=== PATIENT | male | born 1960 | race Caucasian/White ===

== ENCOUNTER 2021-09-13 14:54 | Outpatient (CLI) | payer OTHER, SELFPAY ==
[2021-09-13 15:58] LABS: Basophils Absolute Auto 0.1 K/mm3 (0.0-0.1); Basophils Percent Auto 0.9 % (0.2-1.2); Eosinophils Absolute Auto 0.2 K/mm3 (0-0.3); Eosinophils Percent Auto 1.5 % (0-4.4); Hematocrit 45.8 % (42.0-52.0); Hemoglobin 15.3 g/dL (14.0-18.0); Immature Granulocyte Absolute 0.03 K/mm3 (0.00-0.031); Immature Granulocyte Percent A 0.3 % (0-0.5); Lymphocytes Absolute Auto 5.09 K/mm3 (0.9-3.2); Lymphocytes Percent Auto 46.2 % (18.3-44.2); Mean Corpuscular HGB Conc 33.4 g/dl (32-36); Mean Corpuscular Volume 92.7 fl (80-100); Monocytes Absolute Auto 0.6 K/mm3 (0.1-0.6); Monocytes Percent Auto 5.8 % (2.6-8.5); Neutrophils Percent Auto 45.3 % (45.5-73.1); Platelet Count Result 299 k/mm3 (150-375); Red Blood Count 4.94 M/mm3 (4.6-6.20); Red Cell Distribution Width 13.2 % (11.5-14.5)
[2021-09-13 16:07] LABS: Alanine Aminotransferase 19 U/L (4-50); Albumin Level 4.3 g/dL (3.5-5.1); Alkaline Phosphatase 88 U/L (38-126); Anion Gap 5 mmol/L (8-16); Aspartate Amino Transferase 19 U/L (17-59); Bilirubin,Total 0.8 mg/dL (0.2-1.3); Blood Urea Nitrogen 14 mg/dL (9-20); Calcium 9.4 mg/dL (8.4-10.2); Carbon Dioxide 29 mmol/L (22-30); Chloride 106 mmol/L (98-107); Cholesterol 131 mg/dL (0-200); Estimated Glomerular Filt Rate > 60; Glucose 143 mg/dL (65-110); HDL Direct 36 mg/dL; Potassium 3.5 mmol/L (3.4-5.0); Sodium 140 mmol/L (137-145); Triglycerides 119 mg/dL (<150)
[2021-09-13 16:19] LABS: LDL Cholesterol Direct 72 mg/dL
[2021-09-13 16:38] LABS: Prostate Specific Antigen 2.9 ng/mL (< OR = 4.0)
== END 2021-09-13 14:55 | disposition home or self-care (01) ==
DX: I10 Essential (primary) hypertension (principal); I25.10 Atherosclerotic heart disease of native coronary artery without angina pectoris; E66.8 Other obesity; E78.2 Mixed hyperlipidemia; E11.65 Type 2 diabetes mellitus with hyperglycemia; Z13.89 Encounter for screening for other disorder; Z12.5 Encounter for screening for malignant neoplasm of prostate
CPT/HCPCS: 36415; 80053; 80061; 84153; 84439; 84443; 85025; G0103

== ENCOUNTER 2023-06-15 19:37 | Emergency (ER) | payer OTHER, SELFPAY ==
[2023-06-15 19:40] VITALS: BP 165/104; PULSE 73; RESP 20; TEMP 36.6; O2SAT 97
[2023-06-15] MEDS: ORPHENADRINE CITRATE 30 MG/ML 2 ML VIAL 60 MG IM (20:03)
[2023-06-15] MEDS: KETOROLAC (*BKC) 60 MG/2 ML VIAL IM (20:03)
--- NOTE | 2023-06-15 20:04 | ED.BACK ---
HPI - Back Pain/Injury General Chief Complaint: Back Pain/Injury Stated Complaint: bilateral lower back pain Time Seen by Provider: 06/15/23 19:39 Source: patient Mode of arrival: ambulatory Limitations: no limitations History of Present Illness HPI Narrative: This is a 62-year-old male with a history of diabetes and hypertension presents with back pain radiating into his right upper leg no known injury does improve with rest and exacerbated with movement there is no saddle paresthesias no fever chills. Currently there is no dysuria no hematuria no history of kidney stones no flank pain. MD elicited complaint: back pain Pertinent past history: prior back pain Onset (ago): day(s) Timing: constant Severity: moderate Pain scale (0-10): 6 Quality: dull and aching Location: lumbar spine Radiation: right upper leg Exacerbating factors: movement Relieving factors: immobilization Context: while lifting, turning/twisting and bending Associated symptoms: denies other symptoms Related Data Allergies Allergy/AdvReac Type Severity Reaction Status Date / Time No Known Allergies Allergy Verified 06/15/23 19:45 Review of Systems Review of Systems: All systems reviewed & are unremarkable except as noted in HPI and below PMFSH Past Medical History Medical History Diabetes mellitus Course Course Emergency Course: reassessment of patient after received IM muscle relaxant and Toradol has pain level has improved, UA performed and within normal limits. Vital Signs Vital signs: Vital Signs Temperature 36.6 C 06/15/23 19:40 Pulse Rate 73 06/15/23 19:40 Respiratory Rate 20 06/15/23 19:40 Blood Pressure 165/104 H 06/15/23 19:40 Pulse Oximetry 97 06/15/23 19:40 Oxygen Delivery Room Air 06/15/23 19:40 Temperature 36.6 C 06/15/23 19:40 Pulse Rate 73 06/15/23 19:40 Respiratory Rate 20 06/15/23 19:40 Blood Pressure 165/104 H 06/15/23 19:40 Pulse Oximetry 97 06/15/23 19:40 Oxygen Delivery Room Air 06/15/23 19:40 Critical Care Time Critical Care Time Critical Care Time: No Discharge Plan Discharge Clinical Impression: Lumbar radiculopathy, Acute UTI Sciatica Qualifiers: Laterality: right Qualified Code(s): M54.31 - Sciatica, right side Patient Disposition: Home, Self-Care Condition: Stable Instructions: Antibiotic Form, Urinary Tract Infection in Men (ED), Sciatica (ED), Acute Low Back Pain (ED) Additional Instructions: Advised take medication as prescribed and follow-up with primary care physician if symptoms persist or worsen. Prescriptions: New tramadol 50 mg tablet 50 mg PO Q6H PRN (Reason: pain) Qty: 14 0RF sulfamethoxazole-trimethoprim [Bactrim DS] 800-160 mg tablet 1 tablet PO Q12H 7 Days Qty: 14 0RF Follow-up/Referrals: Jeff Small MD [Primary Care Provider] - Time of Disposition: 20:43
[2023-06-15 20:31] LABS: Appearance Urine Clear (Clear); Bilirubin Urine 1+ (Negative); Blood Urine Negative (Negative); Glucose Urine UA Trace (Negative); Ketones Urine Trace (Negative); Leukocyte Esterase Ur Trace LEU/UL (Negative); Nitrate Urine Positive (Negative); Protein Urine 3+ (Negative); Specific Grav Ur 1.025 (1.010-1.020); pH Urine 6.5 (5.0-8.0)
[2023-06-15 20:37] LABS: Add Urine Microscopic? YES
[2023-06-15 20:38] LABS: Bacteria Urine 1+ /hpf; Color Urine Dark Orange (Yellow); Mucus Urine Moderate /lpf; RBC Urine 0-2 /hpf (0-2); Squamous Epithelial Cell Urine Few /hpf (Few)
[2023-06-15] MEDS: SULFAMETHOXAZOLE/TRIMETHOPRIM 800/160 MG DS TABLET 1 TAB PO (20:46)
[2023-06-15 20:59] VITALS: BP 140/82; PULSE 78; RESP 18; O2SAT 98
--- NOTE | 2023-06-18 13:31 | PC.NURSE ---
reviewed urine culture, no growth noted
== END 2023-06-15 21:01 | disposition home or self-care (01) ==
LOC: CHSED 20:21
PROVIDERS: Emergency Provider Emergency Medicine; PCP Family Medicine
DX: M54.16 Radiculopathy, lumbar region (principal); N39.0 Urinary tract infection, site not specified; M54.31 Sciatica, right side; I10 Essential (primary) hypertension; E11.9 Type 2 diabetes mellitus without complications
CPT/HCPCS: 81001; 87086; 96372; 99284; A9270; J1885; J2360

== ENCOUNTER 2023-08-02 12:01 | Outpatient (CLI) | payer OTHER, SELFPAY ==
--- NOTE | ~2023-08-02 | XR_ITS ---
Clinical Indication: Cough PA and lateral views of the chest: Comparison: None Findings: The lungs are clear, without evidence of focal consolidation or pleural effusion. Cardiome diastinal silhouette is within normal limits, with pacemaker device. Bones and soft tissues are unrem arkable. Impression: Clear lungs. Reviewed, dictated and finalized at location . E READER Impression: Clear lungs.
== END 2023-08-02 12:02 | disposition home or self-care (01) ==
LOC: CHSIMG 12:05
PROVIDERS: PCP Family Medicine; Visit Provider Family Medicine
DX: R05.9 Cough, unspecified (principal)
CPT/HCPCS: 71046

== ENCOUNTER 2024-04-26 13:34 | Outpatient (CLI) | payer OTHER, SELFPAY ==
--- NOTE | ~2024-04-26 | XR_ITS ---
EXAMINATION: XR lumbar spine 2-3V DATE: 04/26/2024 14:03 INDICATION: Lumbago. Left-sided sciatica. TECHNIQUE: 3 views of lumbar spine were obtained. COMPARISON: None. FINDINGS: There is 6 degrees levocurvature of thoracic lumbar spine. There is 2 mm anterolisthesis of L4 on L5. There is mild chronic anterior wedging of T10-L1 vertebral bodies. There is mildly decreas ed disc height at L4-L5 and L5-S1. There is multilevel [id number]-[id number] facet joint osteoarthritis. IMPRESSION: 1. Mild lumbar spondylosis. Reviewed, dictated and finalized at location A. IMPRESSION: 1. Mild lumbar spondylosis.
== END 2024-04-26 13:35 | disposition home or self-care (01) ==
LOC: CHSIMG 13:37
PROVIDERS: PCP Family Medicine; Visit Provider Family Medicine
DX: M54.42 Lumbago with sciatica, left side (principal); M43.06 Spondylolysis, lumbar region
CPT/HCPCS: 72100

== ENCOUNTER 2024-05-06 13:28 | Outpatient (RCR) | payer OTHER, SELFPAY ==
--- NOTE | 2024-05-06 14:23 | PTOPEVAL1 ---
Assessment and note entered by Alvarado Pereira Evaluation Information Assessment Status Evaluation Diagnosis lumbar spondylosis ICD-10 Condition Codes (PT) Pain in low back M54.50 Onset 03/05/24 Subjective Information Pt. reports that he has been experiencing low back pain for the past couple months. He states that he was cutting some trees the day before, which may have started his pain. He reports that his pain has slightly improved over the past couple months. He reports that he has little pain if he is not active. He mainly notices pain with lifting and twisting. He reports that he has been more sedentary since the onset of pain. He reports that he has changed the way he walks, and has been shuffling more due to fear of re-injury. He reports pain begins in the low back and will radiate down into the left buttock. He has undergone x-ray. He reports that he was active with yard work prior to his injury, but has been avoiding any heavy yard work. He states that he will take Advil to reduce his pain. He states that he still can stand for long periods, but has to avoid any sudden movement. He reports that his goal is to reduce his pain. Reported Pain Level Pain Score 2: Self Report Assessment PT Clinical Summary Pt. is a 63 year old male who enters the clinic with low back pain. Upon reviewing x-ray no arthritic change with spondylolisthesis of the lumbar region. He presents with abdominal and proximal l.e. weakness, impaired trunk mobility, impaired flexibility, impaired gait, impaired postural awareness and pain. Continued skilled PT is indicated in order to improve these areas to allow the pt. to be able to safely complete home activities without pain increase. Plan of Care Interventions Gait Training,Hot Pack/Cold Pack,Manual Therapy, Mechanical Traction,Neuro Re-education,Patient/ Caregiver Educati,Therapeutic Activities, Therapeutic Exercise PT Services Indicated Yes Treatment Frequency and 1x/week x 8 visits Duration These treatments will address the objective and functional deficits as defined above. The patient will be advanced safely and appropriately in order for the patient to progress towards his/her prior level of function. Additional exercises will be introduced and as well as a comprehensive home exercise program upon discharge, if needed, ?to ensure carryover of functional gains achieved in the clinic. This treatment plan has been reviewed and agreement upon by the patient.
--- NOTE | 2024-05-06 14:24 | OPREHPOC ---
Outpatient Therapy Plan of Care This is a Multidisciplinary Plan of Care that may contain components documented by all disciplines (PT, OT, and ST.) PT Problem 1 PT Problem #1 Knowledge Deficit PT Goal 1 Goal / Goal Update Pt. will be independent with a HEP focused on core strength and trunk mobility Target Visit 2 PT Problem 2 PT Problem #2 Pain PT Goal 1 Goal / Goal Update Pt. will report reduction in pain levels to 4/10 at worst with prolonged standing activities. Target Visit 8 PT Problem 3 PT Problem #3 Impaired Strength PT Goal 1 Goal / Goal Update Pt. will present with 5/5 proximal l.e. strength and good lower, upper and oblique abdominal strength Pt. will demonstrate increase in mm. strength to normal at all groups to improve lumbar stability and postural awareness with prolonged standing activities. Target Visit 8 PT Problem 4 PT Problem #4 Impaired Flexibility PT Goal 1 Goal / Goal Update Pt. will present at 20 degrees from full knee extension in order to improve ability to safely reach to the floor. Target Visit 5 PT Problem 5 PT Problem #5 Impaired Functional Mobil PT Goal 1 Goal / Goal Update Pt. will present with less than 20% limitation with the Oswestry indicating improve functional mobility Pt. will demonstrate safe mechanics with lifting 20# object from floor to waist x 10 reps Target Visit 8
--- NOTE | 2024-05-20 13:59 | PCPTNOTE ---
Patient called & cancelled scheduled appointment this date due to [illness ]
--- NOTE | 2024-07-24 07:17 | PCPTNOTE ---
Mr. Rodriguez attended a total of 4 treatment sessions. During his last session on 06/03/24 the pt. participated in high level core stabilization activities and denied any pain. He has failed to return to the clinic since 06/03/24 and will be discharged from our care.
== END 2024-06-03 13:45 | disposition home or self-care (01) ==
LOC: CHSPT 13:28
PROVIDERS: Visit Provider Family Medicine
DX: M47.816 Spondylosis without myelopathy or radiculopathy, lumbar region (principal)
CPT/HCPCS: 97110; 97161; 97530